=== PATIENT | female | born 1955 | race American Indian/Alaskan Native ===

== ENCOUNTER 2022-05-06 11:25 | Emergency (ER) | payer MEDICARE ==
[2022-05-06 13:35] LABS: Color,Urine Straw (Yellow)
[2022-05-06 13:37] LABS: Bilirubin,Urine Negative (Negative); Blood,Urine Negative (Negative); Protein,Urine <15 mg/dL mg/dL (Negative); Urobilinogen,Urine < 2.0 mg/dL (<2.0)
--- NOTE | 2022-05-06 13:45 | XRay Report ---
CHEST 1 VIEW 05/06/2022 12:36 PM INDICATION / CLINICAL INFORMATION: Chest Pain. COMPARISON: None available. FINDINGS: SUPPORT DEVICES: None. HEART / MEDIASTINUM: The heart size and pulmonary vasculature are normal. The aorta is normal in rosalinda ernst. LUNGS / PLEURA: No significant pulmonary or pleural abnormality. No pneumothorax. ADDITIONAL FINDINGS: No significant additional findings. IMPRESSION: No acute findings. Signer Name: Trevon Hinds MD Signed: 05/06/2022 1:41 PM Workstation Name: [id number]
[2022-05-06 13:56] LABS: Basophils % (Auto) 0.7 % (0.0-1.8); Eosinophils # (Auto) 0.1 K/mm3 (0.0-0.4); Eosinophils % (Auto) 0.8 % (0.0-4.3); Hemoglobin 11.7 gm/dl (10.1-14.3); Lymphocytes # (Auto) 1.9 K/mm3 (1.2-5.4); Lymphocytes % (Auto) 27.8 % (13.4-35.0); Mean Corpuscular HGB Conc 33 % (30-34); Mean Corpuscular Volume 76 fl (79-97); Monocytes # (Auto) 0.4 K/mm3 (0.0-0.8); Monocytes % (Auto) 5.5 % (0.0-7.3); Platelet Count 250 K/mm3 (140-440); Red Blood Count 4.77 M/mm3 (3.65-5.03); Red Cell Distribution Width 14.3 % (13.2-15.2)
--- NOTE | 2022-05-06 13:57 | Emergency Department Report ---
ED Palpitations HPI - General Chief Complaint: Chest Pain Stated Complaint: ABNORMAL EKG Time Seen by Provider: 05/06/22 12:58 Source: patient Mode of arrival: Ambulatory Limitations: No Limitations - History of Present Illness Initial Comments: Patient is a 67-year-old female with history of hypothyroidism presenting to ED after an abnormal EKG was obtained at her PCPs office today. She reports feeling palpitations over the past 2 days intermittently. She denies any chest pain or shortness of breath. - Related Data Allergies Allergy/AdvReac Type Severity Reaction Status Date / Time Sulfa (Sulfonamide Allergy Unknown Verified 05/06/22 12:02 Antibiotics) ED Review of Systems ROS: Stated complaint: ABNORMAL EKG Other details as noted in HPI Constitutional: denies: chills, fever Respiratory: denies: cough, shortness of breath, wheezing Cardiovascular: palpitations Gastrointestinal: denies: abdominal pain, nausea, diarrhea Musculoskeletal: denies: back pain, joint swelling, arthralgia Skin: denies: rash, lesions Neurological: denies: headache, weakness, paresthesias Psychiatric: denies: anxiety, depression Hematological/Lymphatic: denies: easy bleeding, easy bruising ED Past Medical Hx - Past Medical History Previous Medical History?: Yes Additional medical history: thyroid - Social History Smoking Status: Never Smoker Substance Use Type: None ED Physical Exam - General Limitations: No Limitations General appearance: alert, in no apparent distress - Head Head exam: Present: atraumatic, normocephalic - Respiratory Respiratory exam: Present: normal lung sounds bilaterally. Absent: respiratory distress - Cardiovascular Cardiovascular Exam: Present: regular rate, normal rhythm, normal heart sounds - GI/Abdominal GI/Abdominal exam: Present: soft. Absent: distended, tenderness - Rectal Rectal exam: Present: deferred - Extremities Exam Extremities exam: Present: normal inspection - Neurological Exam Neurological exam: Present: alert, oriented X3 - Psychiatric Psychiatric exam: Present: normal affect, normal mood - Skin Skin exam: Present: warm, dry, intact, normal color ED Course Vital Signs 05/06/22 05/06/22 05/06/22 11:59 12:52 12:57 Temperature 98.4 F Pulse Rate 67 Respiratory 18 15 17 Rate Blood Pressure 154/84 [Left] O2 Sat by Pulse 100 100 Oximetry 05/06/22 05/06/22 14:35 15:24 Temperature Pulse Rate 84 62 Respiratory 18 18 Rate Blood Pressure 115/66 112/70 [Left] O2 Sat by Pulse 99 99 Oximetry ED Medical Decision Making - Lab Data Result diagrams: 05/06/22 12:28 05/06/22 12:28 - Medical Decision Making Labs grossly unremarkable except for elevated free T4 and low TSH consistent with hyperthyroidism. EKG shows sinus rhythm with ventricular rate of 64 bpm with left bundle branch block. No STEMI. Troponin is undetectable. Patient denies any chest pain. She is stable for discharge home with PCP follow-up. Critical care attestation.: If time is entered above; I have spent that time in minutes in the direct care of this critically ill patient, excluding procedure time. ED Disposition Clinical Impression: Palpitations, Left bundle branch block, Hyperthyroidism Disposition: 01 HOME / SELF CARE / HOMELESS Is pt being admited?: No Condition: Stable Instructions: Hyperthyroidism, Left Bundle Branch Block Additional Instructions: Please follow-up with your regular doctor within 1 to 2 weeks. You may return if your symptoms worsen. Time of Disposition: 17:48
[2022-05-06 14:13] LABS: Alanine Aminotransferase 10 units/L (7-56); Albumin 4.4 g/dL (3.9-5); Blood Urea Nitrogen 13 mg/dL (7-17); Hemolysis Index 2
[2022-05-06 14:37] LABS: BUN/Creatinine Ratio 19
[2022-05-06 18:36] VITALS: BP 125/66
--- NOTE | 2022-05-07 10:07 | Electrocardiograph Report ---
[facility] Test Date: 2022-05-06 Test Time: 12:05:48 Pat Name: KATH ESCALANTE Department: Room: Gender: F [employer]: TECH : 1955 Requested By: PATT LAZARO Order Number: [id number] Reading MD: Manuel Richards Measurements Intervals [place] Rate: 63 P: 61 NV: 163 QRS: -23 QRSD: 143 T: 86 QT: 442 QTc: 453 Interpretive Statements Sinus rhythm Probable left atrial enlargement Left bundle branch block Anterior infarct, possibly acute No previous ECG available for comparison Electronically Signed On 05-07-2022 10:06:59 EDT by Manuel Richards
== END 2022-05-06 16:00 | disposition home or self-care (01) ==
LOC: ED 11:25
DX: R00.2 Palpitations (principal); I44.7 Left bundle-branch block, unspecified; E05.90 Thyrotoxicosis, unspecified without thyrotoxic crisis or storm
CPT/HCPCS: 36415; 71045; 80053; 81001; 84436; 84439; 84443; 84481; 84484; 85025; 93005; 99284